=== PATIENT | female | born 1990 | race Two or more races ===

== ENCOUNTER 2018-07-16 12:41 | Emergency (ER) | payer OTHER ==
[~2018-07-16] VITALS: Ht 165.1 cm; Wt 61.2 kg
[~2018-07-16 12:41] MED LIST: MOTRIN800 MG PO
== END 2018-07-16 18:53 | disposition home or self-care (01) ==
LOC: ER 12:41
DX: S13.4XXA Sprain of ligaments of cervical spine, initial encounter (principal); S39.82XA Other specified injuries of lower back, initial encounter; V49.59XA Passenger injured in collision with other motor vehicles in traffic accident, initial encounter; Y93.89 Activity, other specified; Y92.488 Other paved roadways as the place of occurrence of the external cause; Y99.8 Other external cause status

== ENCOUNTER 2020-02-12 08:50 | Outpatient (CLI) | payer OTHER | END 2020-02-12 09:02 | disposition home or self-care (01) | LOC: SONOGRAMA 08:50 | PROVIDERS: ATTEND Obstetrics & Gynecology Maternal & Fetal Medicine | DX: N60.19 Diffuse cystic mastopathy of unspecified breast (principal); N63.0 Unspecified lump in unspecified breast ==

== ENCOUNTER 2021-03-27 14:45 | Inpatient (IN) | payer OTHER ==
[~2021-03-27] VITALS: Ht 175.3 cm; Wt 78.9 kg
[2021-04-22] MEDS ORDERED: PRENATAL TABLE1 EAC1 PO (10:24)
== END 2021-04-24 14:04 | disposition home or self-care (01) | DRG 807 ==
LOC: OB/GYN 04-17 14:45 → LDR 04-22 07:49 → OB/GYN 04-22 20:16 → SURG-SUITE 04-23 14:25
PROVIDERS: ADMIT Obstetrics & Gynecology Maternal & Fetal Medicine; ATTEND Obstetrics & Gynecology Maternal & Fetal Medicine
PROC: 10E0XZZ Delivery of Products of Conception, External Approach (ICD-10-PCS; principal; 2021-04-22)
PROC: 0KQM0ZZ Repair Perineum Muscle, Open Approach (ICD-10-PCS; 2021-04-22)
PROC: 10907ZC Drainage of Amniotic Fluid, Therapeutic from Products of Conception, Via Natural or Artificial Opening (ICD-10-PCS; 2021-04-22)
PROC: 3E033VJ Introduction of Other Hormone into Peripheral Vein, Percutaneous Approach (ICD-10-PCS; 2021-04-22)
PROC: 4A1HXFZ Monitoring of Products of Conception, Cardiac Rhythm, External Approach (ICD-10-PCS; 2021-04-22)
DX: O70.1 Second degree perineal laceration during delivery (principal); Z37.0 Single live birth; Z3A.39 39 weeks gestation of pregnancy; Z20.822 Contact with and (suspected) exposure to COVID-19

== ENCOUNTER 2021-07-23 11:31 | Emergency (ER) | payer OTHER ==
[~2021-07-23] VITALS: Ht 167.6 cm; Wt 64.0 kg
[~2021-07-23 11:31] MED LIST changes: +PRENATAL TABLE1 EAC1 PO
[2021-07-23] MEDS ORDERED: DAILY VALUE1 EACH PO (11:52)
== END 2021-07-23 15:02 | disposition home or self-care (01) ==
LOC: ER 11:31
DX: S92.301A Fracture of unspecified metatarsal bone(s), right foot, initial encounter for closed fracture (principal); Y93.73 Activity, racquet and hand sports; Y92.89 Other specified places as the place of occurrence of the external cause

== ENCOUNTER 2022-04-15 21:33 | Emergency (ER) | payer OTHER ==
[~2022-04-15] VITALS: Ht 167.6 cm; Wt 68.0 kg
[~2022-04-15 21:33] MED LIST changes: +DAILY VALUE1 EACH PO
[2022-04-15] MEDS ORDERED: ALBUTEROL0.63 MG/3 IH (23:59)
== END 2022-04-16 00:07 | disposition home or self-care (01) ==
LOC: ER 21:33
DX: R06.02 Shortness of breath (principal); R09.81 Nasal congestion; J02.9 Acute pharyngitis, unspecified; Z20.822 Contact with and (suspected) exposure to COVID-19